=== PATIENT | male | born 1965 | race Caucasian/White ===

== ENCOUNTER 2019-07-10 13:23 | Outpatient (CLI) | payer BC, SELFPAY ==
--- NOTE | ~2019-07-10 | XR_ITS ---
EXAMINATION: XR lg joint inject/asp w image DATE: 07/10/2019 14:10 INDICATION: Right hip arthritis. TECHNIQUE: A time-out was performed to verify the patient's name, date of , and procedure to b e performed. The procedure including the risks, benefits, and alternatives was discussed with the pat ient. Risks discussed included bleeding and infection. The patient understood the risks and agreed to proceed. The skin overlying the right hip joint was prepped and draped in usual sterile fashion. A nesthetic was administered with 1% lidocaine subcutaneously. A 22 G needle was advanced under fluoro scopic guidance into the joint. Injection of 2 mL of Omnipaque 240 confirmed intra-articular positio n of the needle. Subsequently, injectate consisting of 2 mL 0.5% bupivacaine and 1 mL 80 mg/mL Depo- Medrol was instilled. The needle was removed and the entry site was cleaned and dressed. There were no immediate complications. Fluoroscopy exposure time was 0.1 minutes. The total number of images wa s 2. FINDINGS: Real-time fluoroscopy demonstrates the needle in the right hip joint. Patient's pain prior to procedure:08/20. Patient's pain following the procedure: 06/22. IMPRESSION: 1. Right hip joint injection of local anesthetic and steroid with decrease in the patient's presentin g pain. Reviewed, dictated and finalized at location A. ING EDITOR IMPRESSION: 1. Right hip joint injection of local anesthetic and steroid with decrease in t he patient's presenting pain.
== END 2019-07-10 13:24 | disposition home or self-care (01) ==
PROVIDERS: PCP Internal Medicine; Visit Provider Orthopaedic Surgery
DX: M16.11 Unilateral primary osteoarthritis, right hip (principal)
CPT/HCPCS: 20610; 77002; J1040; Q9966

== ENCOUNTER 2020-06-09 07:29 | Outpatient (CLI) | payer BC, SELFPAY ==
--- NOTE | 2020-06-09 07:35 | ECHO_ITS ---
Patient Info Name: Wenceslao Woody Age: 55 years : 1965 Gender: Male Ht: 71 in Wt: 306 lbs BSA: 2.70 m2 HR: 71 bpm BP: 159 / 93 mmHg Technical Quality: Good Exam Date: 06/09/2020 8:28 AM Exam Location: [facility] Pulmonary Patient Status: Outpatient Admit Date: 06/09/2020 Staff Ordering Physician: Cortes Herrera APRN Career Placement Specialist: Ursula Fitzpatrick RDCS Attending Provider: Cortes Herrera APRN Referring Physician: Javier MICHAEL; Exam Type: CA echo doppler color flow Study Info Indications R53.83 - Other fatigue Strain analysis performed. Complete two-dimensional, color flow and Doppler transthoracic echocardiogram is performed. Summary 1. Complete two-dimensional, color flow and Doppler transthoracic echocardiogram is performed. 2. Left ventricular chamber dimension is normal. 3. Left ventricular systolic function is normal, estimated at 60-65%. 4. There is mildly increased left ventricular wall thickness. 5. The left ventricular diastolic function is abnormal. 6. E/e' 11 is mildly elevated. 7. Global longitudinal strain is normal at -21.5%. 8. Left atrial chamber dimension is mildly enlarged. 9. There is trace mitral valve regurgitation. Left Ventricle E/e' 11 is mildly elevated. Global longitudinal strain is normal at -21.5%. Left ventricular chamber dimension is normal. Left ventricular systolic function is normal, estimated at 60-65%. There is mildly increased left ventricular wall thickness. The left ventricular diastolic function is abnormal. Right Ventricle Right ventricular chamber dimension is normal. Right ventricular systolic function is normal. Left Atria Left atrial chamber dimension is mildly enlarged. Right Atria Right atrial chamber dimension is normal. Aortic Valve The aortic valve is trileaflet. There is no aortic valve stenosis. There is no aortic valve regurgitation. Pulmonic Valve There is no pulmonic regurgitation. Mitral Valve There is no mitral valve stenosis. There is trace mitral valve regurgitation. Tricuspid Valve There is no tricuspid valve regurgitation. Pericardium/Pleural There is no pericardial effusion. Inferior Vena Cava Normal inferior vena cava with >50% collapse upon inspiration consistent with normal right atrial pressure, 5 mmHg. Aorta The aortic root size at the sinus of Valsalva is normal. Left Ventricular Outflow Tract Name Value Normal LVOT 2D LVOT Diameter 2.2 cm LVOT Doppler LVOT Peak Gradient 4 mmHg LVOT Mean Gradient 2 mmHg LVOT VTI 23 cm LVOT VTI/AV VTI Ratio 0.8 LVOT Stroke Volume 86 ml LVOT CO 6.6 l/min LVOT CI 2.4 l/min/m2 Mitral Valve Name Value Normal MV Doppler
--- NOTE | 2020-06-09 07:35 | EST_ITS ---
Patient Info Name: Wenceslao Woody Age: 55 years : 1965 Gender: Male Ht: 71 in Wt: 306 lbs BSA: 2.70 m2 Exam Date: 06/09/2020 9:27 AM Exam Location: [facility] Stress Patient Status: Outpatient Admit Date: 06/09/2020 Staff Ordering Physician: Cortes Herrera APRN Attending Provider: Cortes Herrera APRN Exercise Technologist: Liliana Izaguirre RDCS Exercise Physician: Carroll Cox DO Exam Type: CA stress test treadmill Study Info Indications R07.9 - Chest pain, unspecified A treadmill exercise stress test was performed. Summary 1. 1. Negative Moses exercise stress test for ischemic ST changes by ECG criteria. 2. 2. Reduced functional capacity, achieving 7 METs of workload. 3. 3. Baseline hypertension. 4. 4. Appropriate HR response to exercise. 5. 5. Appropriate HR recovery at 1 minute post exercise. 6. 6. No imaging with stress testing. 7. 7. Patient informed of the above results. Protocol: Moses Stress ECG Details Stage: REST Duration (min): 6 min : 35 sec Speed (mph): 0.0 Grade (%): 0 HR (bpm): 69 SBP (mmHg): 145 DBP (mmHg): 80 METS: --- Stage: REST Duration (min): 9 min : 49 sec Speed (mph): 0.0 Grade (%): 0 HR (bpm): 68 SBP (mmHg): 145 DBP (mmHg): 80 METS: --- Stage: STAGE 1 Duration (min): 1 min : 0 sec Speed (mph): 1.7 Grade (%): 10 HR (bpm): 93 SBP (mmHg): 145 DBP (mmHg): 80 METS: --- Stage: STAGE 1 Duration (min): 2 min : 0 sec Speed (mph): 1.7 Grade (%): 10 HR (bpm): 107 SBP (mmHg): 145 DBP (mmHg): 80 METS: --- Stage: STAGE 1 Duration (min): 3 min : 0 sec Speed (mph): 1.7 Grade (%): 10 HR (bpm): 114 SBP (mmHg): 184 DBP (mmHg): 78 METS: --- Stage: STAGE 2 Duration (min): 1 min : 0 sec Speed (mph): 2.5 Grade (%): 12 HR (bpm): 124 SBP (mmHg): 184 DBP (mmHg): 78 METS: --- Stage: STAGE 2 Duration (min): 2 min : 0 sec Speed (mph): 2.5 Grade (%): 12 HR (bpm): 130 SBP (mmHg): 209 DBP (mmHg): 78 METS: --- Stage: STAGE 2 Duration (min): 3 min : 0 sec Speed (mph): 2.5 Grade (%): 12 HR (bpm): 136 SBP (mmHg): 209 DBP (mmHg): 78 METS: --- Stage: STAGE 3 Duration (min): 0 min : 15 sec Speed (mph): 3.4 Grade (%): 14 HR (bpm): 140 SBP (mmHg): 209 DBP (mmHg): 78 METS: --- Stage: RECOVERY Duration (min): 0 min : 44 sec Speed (mph): 0.0 Grade (%): 0 HR (bpm): 132 SBP (mmHg): 193 DBP (mmHg): 74 METS: --- Stage: RECOVERY Duration (min): 1 min : 44 sec Speed (mph): 0.0 Grade (%): 0 HR (bpm): 114 SBP (mmHg): 193 DBP (mmHg): 74 METS: --- Stage: RECOVERY Duration (min): 2 min : 44 sec Speed (mph): 0.0 Grade (%): 0 HR (bpm): 104 SBP (mmHg): 193 DBP (mmHg): 74 METS: --- Stage: RECOVERY
== END 2020-06-09 07:30 | disposition home or self-care (01) ==
PROVIDERS: PCP Internal Medicine; Visit Provider Nurse Practitioner
DX: R06.02 Shortness of breath (principal); R53.83 Other fatigue; R07.89 Other chest pain; I51.9 Heart disease, unspecified
CPT/HCPCS: 93017; 93306

== ENCOUNTER 2020-10-04 08:32 | Outpatient (CLI) | payer BC, SELFPAY ==
--- NOTE | ~2020-10-04 | US_ITS ---
US abdomen limited INDICATION: Increased liver function tests PROCEDURE: Realtime right upper abdominal ultrasound. COMPARISON: No prior studies for comparison. FINDINGS: The pancreas is normal without focal mass or pancreatic ductal dilation. Liver echotexture is increased, consistent with fatty infiltration. There is normal directional flow in the portal ve in. The gallbladder is normal without stones, gallbladder wall thickening or pericholecystic fluid. Comm on bile duct measures 3.5 mm. No sonographic Garcia's sign. Right renal echotexture is unremarkable. IMPRESSION: 1: Hepatic steatosis. Reviewed, dictated and finalized at location A. IMPRESSION: 1: Hepatic steatosis.
== END 2020-10-04 08:33 | disposition home or self-care (01) ==
PROVIDERS: PCP Internal Medicine; Visit Provider Internal Medicine
DX: R79.89 Other specified abnormal findings of blood chemistry (principal); K76.0 Fatty (change of) liver, not elsewhere classified
CPT/HCPCS: 76705

== ENCOUNTER 2021-08-18 06:51 | Outpatient (CLI) | payer BC, SELFPAY ==
--- NOTE | ~2021-08-18 | MR_ITS ---
EXAMINATION: MR shoulder LT wo con DATE: 08/18/2021 08:20 INDICATION: Left shoulder pain TECHNIQUE: Magnetic resonance imaging (MRI) of the left shoulder was performed without intravenous co ntrast. Sequences included axial PD-weighted FS FSE, coronal oblique PD-weighted FS FSE, coronal obli que T2-weighted FS FSE, sagittal PD-weighted FS FSE, and sagittal T1-weighted SE. COMPARISON: None. FINDINGS: Coracoacromial arch: The acromion undersurface is curved in morphology (type II). The coracoacromial ligament is normal. M oderate acromioclavicular osteoarthritis with small inferiorly directed osteophytes which abuts the u nderlying supraspinatus muscle and tendon upon which exerts minimal mass effect. Rotator cuff: Mild infraspinatus and moderate supraspinatus tendinopathy. There is a small intrasubstance tear sugar uring approximate 5 mm AP and extending proximally 1 m from the superior facet footplate which involv es approximately one third of the tendon thickness. The teres minor tendon is normal. Mild subscapula ris tendinopathy without discrete tear. Normal rotator cuff muscle bulk and signal. Biceps tendon, glenoid labrum and glenohumeral cartilage: Long head of the biceps tendon is normal. There is thickening of the coracohumeral and superior gleno humeral ligament components of the biceps jak sling without a discrete defect which could be due t o either partial tear or adhesive capsulitis, the latter which is a clinical diagnosis. SLAP tear of the 10:30-12:00 position of the posterior superior glenoid labrum. There is suggestion of mild glenoh umeral osteoarthritis with partial thickness cartilage loss and chondral surface irregularity along t he posterior superomedial aspect of the humeral head and mild partial-thickness cartilage loss along the anterosuperior glenoid. Assessment of the cartilages is however limited by some motion blurring a nd increased quantum mottle motion on the axial and coronal images. Fluid: Small amount of fluid in the long head biceps tendon sheath which is disproportionate to the physiolo gic amount fluid in the glenohumeral joint consistent with mild bicipital tenosynovitis. No loose ost eochondral bodies. Mild increased fluid signal in the subacromial/subdeltoid bursa consistent with mi ld bursitis. Bones: Normal marrow signal with no edema, fracture or pathologic marrow replacing process. IMPRESSION: 1. Moderate supraspinatus tendinopathy with small mild intrasubstance tear at the distal tendon. Mild infraspinatus and subscapularis tendinopathy without tear. 2. Mild glenohumeral osteoarthritis with SLAP tear at the posterior superior glenoid labrum. 3. Moderate acromioclavicular osteoarthritis. 4. Mild subacromial/subdeltoid bursitis. 5. Thickening of the biceps jak sling which could be due to either partial tear or adhesive capsul itis, the latter a clinical diagnosis. 6. Mild bicipital tenosynovitis. Reviewed, dictated and finalized at location A. CTOR OF THERAPY SERVICES IMPRESSION: 1. Moderate supraspinatus tendinopathy with small mild intrasubstance tear at t he distal tendon. Mild infraspinatus and subscapularis tendinopathy without tea r. 2. Mild glenohumeral osteoarthritis with SLAP tear at the posterior superior gl enoid labrum. 3. Moderate acromioclavicular osteoarthritis. 4. Mild subacromial/subdeltoid bursitis. 5. Thickening of the biceps jak sling which could be due to either partial t ear or adhesive capsulitis, the latter a clinical diagnosis. 6. Mild bicipital tenosynovitis.
== END 2021-08-18 06:52 | disposition home or self-care (01) ==
PROVIDERS: PCP Internal Medicine; Visit Provider Orthopaedic Surgery
DX: M19.012 Primary osteoarthritis, left shoulder (principal); M75.102 Unspecified rotator cuff tear or rupture of left shoulder, not specified as traumatic; S43.432A Superior glenoid labrum lesion of left shoulder, initial encounter; M75.52 Bursitis of left shoulder; M65.812 Other synovitis and tenosynovitis, left shoulder
CPT/HCPCS: 73221

== ENCOUNTER 2021-08-20 13:13 | Outpatient (CLI) | payer BC, SELFPAY ==
--- NOTE | ~2021-08-20 | XR_ITS ---
EXAMINATION: XR chest 2V EXAM DATE: 08/20/2021 13:30 INDICATION: R07.9 - Chest pain, unspecified, left side pain. TECHNIQUE: Frontal and lateral projections of the chest obtained and reviewed. There is no prior jeovanny dy for comparison. FINDINGS: Mild cardiomegaly. No confluent consolidation, pneumothorax or pleural effusion suspected. There are no osseous abnormalities identified. IMPRESSION: Mild cardiomegaly. Reviewed, dictated and finalized at location A. NG QUALITY ANALYST IMPRESSION: Mild cardiomegaly.
== END 2021-08-20 13:14 | disposition home or self-care (01) ==
PROVIDERS: PCP Internal Medicine; Visit Provider Nurse Practitioner
DX: R07.9 Chest pain, unspecified (principal); I51.7 Cardiomegaly
CPT/HCPCS: 71046

== ENCOUNTER 2022-01-10 01:32 | Emergency (ER) | payer BC, SELFPAY ==
[2022-01-10] VITALS (21 sets, daily range): BP systolic 125–148; BP diastolic 66–80; PULSE 54–70; RESP 15–22; TEMP 36.4; O2SAT 96–100
--- NOTE | ~2022-01-10 | CT_ITS ---
EXAMINATION: CT abdomen pelvis w con DATE: 01/10/2022 02:36 INDICATION: epigastric pain TECHNIQUE: Computed tomography (CT) of the abdomen and pelvis was performed with 100 mL Omnipaque-300 intravenous contrast. Automated exposure control and iterative reconstruction technique were employe d. The dose-length product was 1553.97 mGy-cm. COMPARISON: None. FINDINGS: Lower thorax: Cardiomegaly. Aortic calcification. Liver: Enlarged. Diffusely low density as can be seen with steatosis. Biliary/Gallbladder: Gallbladder is partially collapsed. No bile duct dilation. Pancreas: No mass or duct dilation. Spleen: Normal. Adrenals:No mass. Kidneys: No mass, stone, or hydronephrosis. GI tract: No small or large bowel dilation. Normal appendix. Mesentery/Peritoneum: No ascites, mass, or free air. Retroperitoneum: No mass. Pelvis: Pelvic organs are within normal limits. Soft Tissues: Soft tissues and body wall unremarkable. Bones: No acute osseous finding. IMPRESSION: No acute abdominopelvic process. Reviewed, dictated and finalized at location K.
--- NOTE | 2022-01-10 01:49 | ECG_ITS ---
Measurements Intervals [place] Rate: 63 P: 36 MS: 162 QRS: -30 QRSD: 185 T: 25 QT: 472 QTc: 485 Interpretive Statements SINUS RHYTHM RIGHT BUNDLE BRANCH BLOCK INFERIOR INFARCT, AGE INDETERMINATE ABNORMAL ECG Electronically Signed On 01-10-2022 8:08:00 CDT by Carroll Cox D.O.
--- NOTE | 2022-01-10 01:55 | ED.ABDPAIN ---
HPI - Abdominal Pain General Chief Complaint: Abdominal Pain Stated Complaint: abd/back pain Time Seen by Provider: 01/10/22 01:48 History of Present Illness HPI narrative: Patient is a 56-year-old male complaining of epigastric pain, 8 out of 10, sharp, nonradiating, started tonight. Patient denies any chest pain, shortness of breath, nausea, vomiting, diarrhea, urinary symptoms, fever or chills. Related Data Home Medications Medication Instructions Recorded Confirmed aspirin 81 mg tablet,delayed 81 mg PO DAILY 05/16/19 09/30/21 release (Aspir-) fluticasone propionate 50 1 spray intranasal DAILY PRN 05/16/19 09/30/21 mcg/actuation nasal Congestion spray,suspension (Flonase Allergy Relief) omega-3 fatty acids 1,000 mg 1,000 mg PO DAILY 09/25/20 09/30/21 capsule (Fish Oil Concentrate) topiramate 100 mg capsule,extended 100 mg PO DAILY 08/20/21 09/30/21 release 24 hr (Trokendi XR) Allergies Allergy/AdvReac Type Severity Reaction Status Date / Time lisinopril Allergy Severe angioedema Verified 01/10/22 01:57 Review of Systems Review of Systems: All systems reviewed & are unremarkable except as noted in HPI and below Constitutional: Constitutional: Denies body ache(s), Denies chills, Denies excessive sweating, Denies fatigue, Denies fever(s), Denies headache(s), Denies lethargy, Denies malaise, Denies weakness and Denies weight loss Eyes: Eyes: Denies blurry vision, Denies change in vision and Denies loss of vision ENT: Denies dizziness, Denies ear discharge, Denies headache(s), Denies lip swelling, Denies epistaxis, Denies nasal congestion, Denies neck pain, Denies throat swelling and Denies tongue swelling Cardiovascular: Cardiovascular: Denies chest pain, Denies chest pain at rest, Denies chest pain with activity, Denies diaphoresis, Denies rapid heart rate, Denies edema, Denies irregular heart rhythm, Denies lightheadedness, Denies palpitations, Denies dyspnea and Denies dyspnea on exertion Respiratory: Respiratory: Denies chest congestion, Denies cough, Denies hemoptysis, Denies dyspnea and Denies dyspnea on exertion Gastrointestinal: Gastrointestinal: Denies melena, Denies hematochezia, Denies diarrhea, Denies nausea, Denies vomiting and Denies hematemesis Musculoskeletal: Musculoskeletal: Denies abnormal gait, Denies deformity, Denies joint swelling, Denies limited range of motion, Denies neck pain and Denies numbness Neurologic: Denies Abnormal speech present, Denies abnormal gait, Denies confusion, Denies dizziness, Denies headache(s), Denies focal weakness, Denies loss of vision, Denies numbness, Denies Other visual disturbances, Denies Sensory deficit (Neuro) and Denies weakness Psychiatric: Psychiatric: Denies confusion, Denies depression, Denies auditory hallucinations, Denies homicidal ideation and Denies suicidal ideation Endocrine: Endocrine: Denies cold intolerance, Denies excessive sweating, Denies fatigue, Denies heat intolerance and Denies palpitations Hematologic/Lymphatic: Hematologic/Lymphatic: Denies easy bleeding and Denies easy bruising Allergic/Immunologic: Allergic/Immunologic: Denies lip swelling, Denies throat swelling and Denies tongue swelling PMFSH Past Medical History Medical History Adhesive capsulitis of left shoulder Arthritis of right hip Arthritis of shoulder region, left, degenerative Biceps tendonitis on right Chronic GERD Complete tear of left rotator cuff Essential (primary) hypertension Family history of colon cancer in father Hearing loss Hx of migraines Labral tear of long head of left biceps tendon Labral tear of right hip joint Left shoulder pain Mixed hyperlipidemia Morbid obesity with BMI of 40.0-44.9, adult PAM (obstructive sleep apnea) WEARS CPAP Tendonitis of upper biceps tendon of left shoulder Type 2 diabetes mellitus without complication Social History Social History (Reviewed 01/10/22 @
[2022-01-10 02:04] LABS: Basophils Absolute Auto 0.1 K/mm3 (0.0-0.1); Basophils Percent Auto 0.6 % (0.2-1.2); Eosinophils Absolute Auto 0.4 K/mm3 (0-0.3); Eosinophils Percent Auto 5.2 % (0-4.4); Hemoglobin 13.9 g/dL (14.0-18.0); Immature Granulocyte Absolute 0.02 K/mm3 (0.00-0.031); Immature Granulocyte Percent A 0.2 % (0-0.5); Lymphocytes Absolute Auto 1.66 K/mm3 (0.9-3.2); Lymphocytes Percent Auto 20.6 % (18.3-44.2); Mean Corpuscular HGB Conc 32.3 g/dl (32-36); Mean Corpuscular Hemoglobin 30.1 pg (26-34); Mean Corpuscular Volume 93.1 fl (80-100); Monocytes Absolute Auto 0.8 K/mm3 (0.1-0.6); Monocytes Percent Auto 9.4 % (2.6-8.5); Neutrophils Absolute Auto 5.2 K/mm3 (1.3-6.7); Platelet Count Result 284 k/mm3 (150-375); Red Blood Count 4.62 M/mm3 (4.6-6.20); Red Cell Distribution Width 13.5 % (11.5-14.5); White Blood Count 8.1 K/mm3 (4.5-10.0)
[2022-01-10] MEDS: LACTATED RINGERS 1,000 ML 999 ML IV CONT (02:10)
[2022-01-10 02:13] LABS: Alanine Aminotransferase 51 U/L (6-50); Albumin Level 4.3 g/dL (3.5-5.1); Alkaline Phosphatase 104 U/L (38-126); Anion Gap 11 mmol/L (8-16); Aspartate Amino Transferase 34 U/L (17-59); Bilirubin,Total 0.3 mg/dL (0.2-1.3); Blood Urea Nitrogen 25 mg/dL (9-20); Calcium 9.1 mg/dL (8.4-10.2); Carbon Dioxide 19 mmol/L (22-30); Chloride 109 mmol/L (98-107); Estimated CRCL calculation 69 ml/min; Estimated Glomerular Filt Rate 48; Glucose 126 mg/dL (65-110); Lipase 75 U/L (23-300); Potassium 4.2 mmol/L (3.4-5.0); Sodium 139 mmol/L (137-145)
== END 2022-01-10 04:44 | disposition home or self-care (01) ==
PROVIDERS: Emergency Provider Emergency Medicine; PCP Internal Medicine
DX: R10.11 Right upper quadrant pain (principal); I10 Essential (primary) hypertension; E11.9 Type 2 diabetes mellitus without complications; E78.2 Mixed hyperlipidemia; K21.9 Gastro-esophageal reflux disease without esophagitis; M19.012 Primary osteoarthritis, left shoulder; M16.11 Unilateral primary osteoarthritis, right hip; G47.33 Obstructive sleep apnea (adult) (pediatric); E66.01 Morbid (severe) obesity due to excess calories; Z68.41 Body mass index [BMI] 40.0-44.9, adult; Z79.82 Long term (current) use of aspirin; Z79.84 Long term (current) use of oral hypoglycemic drugs; I45.10 Unspecified right bundle-branch block; R94.31 Abnormal electrocardiogram [ECG] [EKG]
CPT/HCPCS: 36415; 74177; 80053; 83690; 85025; 93005; 96360; 99284; J7120; Q9967

== ENCOUNTER 2024-08-07 00:23 | Day surgery (SDC) | payer BC, SELFPAY ==
[2024-07-27 10:04] VITALS: BMI 43.3
--- OUTSIDE RECORDS SUMMARY | 2024-08-07 00:25 | XMS_ITS | Clinical Summary ---
Author Organization [facility] Address [address] [facility] [address] [facility] [address] [place] [address] Care Team Providers Care Sales Representative Meats Name Role Phone Rohan Mcgee MD Primary Care Provider [phone] Source Comments [facility],non-owned Affiliates and Associated Physician Practices is amultiple site organization consisting of ambulatory clinics and hospital sitesin [place], [place], [place] and [place]. This disclosure is being madepursuant to the Care Everywhere program and may not contain all information available regarding this patient. Last updated 18.[facility] Allergies No known active allergies Medications * Be aware that medications may not be up to date on this document. Alwaysverify current medications with the patient. Medication Sig Dispensed Refills Start Date End Date Status metFORMIN ER 24hr (GLUCOPHAGE XR) 500MG tablet Take 500 mg by mouth daily with dinner Active allopurinol (ZYLOPRIM) 300 MG tablet Take 300 mg by mouth once daily Active lisinopril (PRINIVIL; ZESTRIL) 20 MG tablet Take 20 mg by mouth once daily Active aspirin (ASPIRIN) 81 MG tablet Take 81 mg by mouth once daily Active phentermine-topiramat e 24hr (QSYMIA) 3.75-23 MG capsule Take 1 capsule by mouth once daily Active Fluticasone Propionate (FLONASE NA) Active Fexofenadine HCl (GARRICK PO) Active CPAP Use as directed Active Social History Tobacco Use Types Packs/Day Years Used Date Smoking Tobacco: Never Smokeless Tobacco: Never Sex and Gender Information Value Date Recorded Sex Assigned at Not on file Gender Identity Not on file Sexual Orientation Not on file Last Filed Vital Signs Vital Sign Reading Time Taken Comments Blood Pressure 150/96 09/01/2017 11:19 AM CDT Pulse 76 09/01/2017 11:19 AM CDT Temperature 36.9 C (98.4 F) 09/01/2017 11:19 AM CDT Respiratory Rate 18 09/01/2017 11:19 AM CDT Oxygen Saturation 98% 09/01/2017 11:19 AM CDT Inhaled Oxygen Concentration - - Weight 143.3 kg (316 lb) 09/01/2017 11:19 AM CDT Height 180.3 cm (5' 11 ) 09/01/2017 11:19 AM CDT Body Mass Index 44.07 09/01/2017 11:19 AM CDT Plan of Treatment Health Maintenance Due Date Last Done Comments COLOGUARD (AGES 45-75) - COL ON CA SCREENING 1965 COLON MONITORING 1965 COLONOSCOPY - COLON CA SCREENING 1964 CT COLONOGRAPHY - COLON CA SCREENING 1965 Colorectal Cancer Screening 1965 FIT - COLON CA SCREENING 1965 FLEX SIG - COLON CA SCREENING 1965 LIPID TESTING 1965 HIV SCREENING 1979 HEPATITIS C SCREENING 03/15/1982 DTAP/TDAP/TD VACCINES (1 - Tdap) 1983 PNEUMOCOCCAL VACCINE 50+ (1 of 1 - PCV) 2014 ZOSTER VACCINE (1 of 2) 2014 SCREENING FOR DIABETES 09/01/2017 COVID-19 VACCINE ( - 2023-2 5 season) 2024 INFLUENZA VACCINE (#1) 2024 Respiratory Syncytial Virus (RSV) Vaccine Pt: or over 60 yrs (1 - Risk 60-74 years 1-dose series) 2024 DEPRESSION SCREENING 06/13/2024 HEPATITIS B VACCINE Aged Out No longe r eligible based on patient's age to complete this topic HIB VACCINE Aged Out No longer eligi ble based on patient's age to complete this topic HPV VACCINE Aged Out No longer eligi ble based on patient's age to complete this topic MENINGOCOCCAL (Group B) VACCINE Aged Out No longer eligible based on patient's age to complete this topic MENINGOCOCCAL VACCINE Aged Out No coll[place] hannah eligible based on patient's age to complete this topic PNEUMOCOCCAL VACCINE Aged Out No long er eligible based on patient's age to complete this topic Care Teams Sales Representative Meats Relationship Specialty Start Date End Date Rohan Mcgee MD [address] [facility] [address] [place] [id number] PCP - General Internal Medicine 09/01/17
--- OUTSIDE RECORDS SUMMARY | 2024-08-07 00:25 | XMS_ITS | Patient Health Summary ---
Author Organization [facility] Address [address] [place] [address] Care Team Providers Care Concrete Stone Finisher Name Role Phone Rohan Mcgee MD Primary Care Provider [phone] Note from [facility],non-owned Affiliates and Associated Physician Practices is amultiple site organization consisting of ambulatory clinics and hospital sitesin [place], [place], [place] and [place]. This disclosure is being madepursuant to the Care Everywhere program and may not contain all information available regarding this patient. Last updated 18.[facility] Allergies No known active allergies Medications * Be aware that medications may not be up to date on this document. Alwaysverify current medications with the patient. * metFORMIN ER 24hr (GLUCOPHAGE XR) 500MG tablet Take 500 mg by mouth daily with dinner * allopurinol (ZYLOPRIM) 300 MG tablet Take 300 mg by mouth once daily * lisinopril (PRINIVIL; ZESTRIL) 20 MG tablet Take 20 mg by mouth once daily * aspirin (ASPIRIN) 81 MG tablet Take 81 mg by mouth once daily * phentermine-topiramate 24hr (QSYMIA) 3.75-23 MG capsule Take 1 capsule by mouth once daily * Fluticasone Propionate (FLONASE NA) * Fexofenadine HCl (GARRICK PO) * CPAP Use as directed Social History Tobacco Use Types Packs/Day Years [...] Mass Index 44.07 09/01/2017 11:19 AM CDT Care Teams Concrete Stone Finisher Relationship Specialty Start Date End Date Rohan Mcgee MD [address] [phone] PCP - General Internal Medicine 09/01/17
--- OUTSIDE RECORDS SUMMARY | 2024-08-07 00:25 | XMS_ITS | Referral Summary ---
Author Organization [facility] Address [address] [place] [address] Care Team Providers Care Business Continuity Specialist Name Role Phone Rohan Mcgee MD Primary Care Provider [phone] Source Comments [facility],non-owned Affiliates and Associated Physician Practices is amultiple site organization consisting of ambulatory clinics and hospital sitesin [place], [place], [place] and [place]. This disclosure is being madepursuant to the Care Everywhere program and may not contain all information available regarding this patient. Last updated 18.[facility] Allergies No known active allergies Medications * [...] 09/01/2017 11:19 AM CDT Plan of Treatment Not on file Care Teams Business Continuity Specialist Relationship Specialty Start Date End Date Rohan Mcgee MD [address] [phone] PCP - General Internal Medicine 09/01/17
[2024-08-07 09:18] VITALS: BP 132/71; PULSE 67; RESP 18; TEMP 36.2; O2SAT 99; BMI 38.4
[2024-08-07] MEDS: LACTATED RINGERS 1,000 ML 150 ML IV CONT (09:26)
[2024-08-07 09:33] LABS: Glucose Point of Care 100 mg/dl (65-105)
--- NOTE | 2024-08-07 09:41 | WPDANESEPPF ---
Anes - Initial Pre Proc Eval Procedure: Operation Date: 08/07/24 10:30 Proposed Procedures p Screening Colonoscopy - Hugh Guthrie MD Date/Time: 08/07/24 09:41 Surgeon: Hugh Guthrie MD Pre Op Diagnosis: Screening Patient Data Age: 59 Gender: M Height: 1.8 m Weight: 125 kg Last Vital Signs Temp 36.2 C L 08/07/24 09:18 Pulse 67 08/07/24 09:18 Resp 18 08/07/24 09:18 BP 132/71 08/07/24 09:18 Pulse Ox 99 08/07/24 09:18 O2 Del Method Room Air 08/07/24 09:18 Allergies Allergy/AdvReac Type Severity Reaction Status Date / Time lisinopril Allergy Severe angioedema Verified 08/07/24 09:17 Home Medications ?Medication ?Instructions ?Recorded ?Confirmed ?Type aspirin 81 mg tablet,delayed 81 mg PO DAILY 05/16/19 08/07/24 History release (Aspir-) fluticasone propionate 50 1 spray intranasal DAILY PRN 05/16/19 07/27/24 History mcg/actuation nasal Congestion spray,suspension (Flonase Allergy Relief) omega-3 fatty acids 1,000 mg 1,000 mg PO DAILY 09/25/20 08/07/24 History capsule (Fish Oil Concentrate) topiramate 100 mg capsule,extended 100 mg PO DAILY 08/20/21 08/07/24 History release 24 hr (Trokendi XR) valsartan 160 mg tablet (Diovan) 160 mg PO BID #180 tabs 01/24/24 08/07/24 Rx allopurinol 300 mg tablet 300 mg PO DAILY #90 tabs 02/14/24 08/07/24 Rx amlodipine 10 mg tablet 10 mg PO DAILY #90 tabs 03/12/24 08/07/24 Rx fenofibrate nanocrystallized 145 145 mg PO DAILY #90 tabs 03/12/24 08/07/24 Rx mg tablet lovastatin 40 mg tablet 40 mg PO DAILY #90 tabs 03/12/24 08/07/24 Rx metformin 500 mg tablet See Rx Instructions .Route 03/12/24 08/07/24 Rx .COMPLEX #180 tabs tadalafil 20 mg tablet (Cialis) 20 mg PO DAILY PRN sexual activity 03/20/24 07/27/24 Rx #20 tabs tirzepatide 5 mg/0.5 mL 5 mg (0.5 mL) subcut WEEKLY #2 mL 03/20/24 07/27/24 Rx subcutaneous pen injector (Mounjaro) omeprazole 20 mg capsule,delayed 20 mg PO BID #180 caps 03/28/24 08/07/24 Rx release tirzepatide 7.5 mg/0.5 mL 7.5 mg (0.5 mL) subcut WEEKLY #2 mL 05/28/24 07/27/24 Rx subcutaneous pen injector (Mounjaro) Laboratory Tests 08/07/24 09:28 POC Capillary Glucose 100 mg/dl (65-105) Patient hx anesthesia problems: none Family hx anesthesia problems: none Results Review: All pre-operative results and documents have been reviewed as part of the pre-operative evaluation. [facility] Past Medical History Medical History Adhesive capsulitis of left shoulder Arthritis of right hip Arthritis of shoulder region, left, degenerative Biceps tendonitis on right Chronic GERD Complete tear of left rotator cuff Essential (primary) hypertension Family history of colon cancer in father Hearing loss Hx of migraines Labral tear of long head of left biceps tendon Labral tear of right hip joint Left shoulder pain Mixed hyperlipidemia Morbid obesity with BMI of 40.0-44.9, adult PAM (obstructive sleep apnea) WEARS CPAP Tendonitis of upper biceps tendon of left shoulder Type 2 diabetes mellitus without complication Social History Social History Smoking status: Smoker, status unknown Alcohol intake: former Substance use: never Lack of Transportation: No Lack of Food: Never True Current Housing: I Have Housing Concerned About Future Housing: No Difficulty Paying Gas/Electric Bills: No Difficulty Paying for Meds: No Currently Unemployed: No Education: High School Diploma/GED Difficulty w/ Childcare or Family Care: No Living arrangements: with family Additional living arrangements comments: Spiritual care concerns: No Anes - Eval Final PreProcedure Day of Procedure 08/07/24 09:41 Patient weight: obese Heart: regular rate and rhythm Lungs: clear to auscultation Airway: Mallampati scale class II Neurological: alert and oriented Last oral intake: >/= 8 hours ASA classification: III Emergent: no Anesthetic plan: proceed Anesthesia type and monitoring: general GIVS and standard monitoring Results Review: All pre-operative results and documents have been reviewed as part of the pre-operative evaluation. Informed Consent: The patient's anesthetic plan and its attendant risks and benefits were discussed with the patient/family/POA. Questions were solicited and answers provided to the satisfaction of the patient/family/POA.
--- NOTE | 2024-08-07 09:49 | PM.HPGS ---
History of Present Illness History of Present Illness Consent: Risks, benefits, and alternatives have been discussed and questions answered. Patient agrees to proceed with procedure. Chief complaint: Screening Narrative: Lawrence Woody is a 59 year old male here for colonoscopy, last one 2019, father had colon cancer Review of Systems Review of Systems: All systems reviewed & are unremarkable except as noted in HPI and below PMFSH Past Medical History Medical History Adhesive capsulitis of left shoulder Arthritis of right hip Arthritis of shoulder region, left, degenerative Biceps tendonitis on right Chronic GERD Complete tear of left rotator cuff Essential (primary) hypertension Family history of colon cancer in father Hearing loss Hx of migraines Labral tear of long head of left biceps tendon Labral tear of right hip joint Left shoulder pain Mixed hyperlipidemia Morbid obesity with BMI of 40.0-44.9, adult PAM (obstructive sleep apnea) WEARS CPAP Tendonitis of upper biceps tendon of left shoulder Type 2 diabetes mellitus without complication Social History Social History Smoking status: Smoker, status unknown Alcohol intake: former Substance use: never Lack of Transportation: No Lack of Food: Never True Current Housing: I Have Housing Concerned About Future Housing: No Difficulty Paying Gas/Electric Bills: No Difficulty Paying for Meds: No Currently Unemployed: No Education: High School Diploma/GED Difficulty w/ Childcare or Family Care: No Living arrangements: with family Additional living arrangements comments: Spiritual care concerns: No Meds Home Medications and Allergies Home Medications ?Medication ?Instructions ?Recorded ?Confirmed ?Type aspirin 81 mg tablet,delayed 81 mg PO DAILY 05/16/19 08/07/24 History release (Aspir-) fluticasone propionate 50 1 spray intranasal DAILY PRN 05/16/19 07/27/24 History mcg/actuation nasal Congestion spray,suspension (Flonase Allergy Relief) omega-3 fatty acids 1,000 mg 1,000 mg PO DAILY 09/25/20 08/07/24 History capsule (Fish Oil Concentrate) topiramate 100 mg capsule,extended 100 mg PO DAILY 08/20/21 08/07/24 History release 24 hr (Trokendi XR) valsartan 160 mg tablet (Diovan) 160 mg PO BID #180 tabs 01/24/24 08/07/24 Rx allopurinol 300 mg tablet 300 mg PO DAILY #90 tabs 02/14/24 08/07/24 Rx amlodipine 10 mg tablet 10 mg PO DAILY #90 tabs 03/12/24 08/07/24 Rx fenofibrate nanocrystallized 145 145 mg PO DAILY #90 tabs 03/12/24 08/07/24 Rx mg tablet lovastatin 40 mg tablet 40 mg PO DAILY #90 tabs 03/12/24 08/07/24 Rx metformin 500 mg tablet See Rx Instructions .Route 03/12/24 08/07/24 Rx .COMPLEX #180 tabs tadalafil 20 mg tablet (Cialis) 20 mg PO DAILY PRN sexual activity 03/20/24 07/27/24 Rx #20 tabs tirzepatide 5 mg/0.5 mL 5 mg (0.5 mL) subcut WEEKLY #2 mL 03/20/24 07/27/24 Rx subcutaneous pen injector (Mounjaro) omeprazole 20 mg capsule,delayed 20 mg PO BID #180 caps 03/28/24 08/07/24 Rx release tirzepatide 7.5 mg/0.5 mL 7.5 mg (0.5 mL) subcut WEEKLY #2 mL 05/28/24 07/27/24 Rx subcutaneous pen injector (Mounjaro) Allergies Allergy/AdvReac Type Severity Reaction Status Date / Time lisinopril Allergy Severe angioedema Verified 08/07/24 09:17 Vital Signs Vital Signs - 24 hr 08/07/24 09:18 Temperature 97.1 F L Pulse Rate 67 Respiratory Rate 18 Blood Pressure 132/71 Pulse Oximetry 99 Oxygen Delivery Room Air Exam Const: General: comfortable and no acute distress HENMT: Face/Nose/Sinus: Normal nares present Eyes: General: appearance normal, both eyes and all related structures Neck: Neck: no JVD Resp: Auscultation: clear to auscultation bilaterally Cardio: Rate: regular rate Rhythm: regular rhythm GI: Inspection: non-distended GI Palp: Yes Soft to palpation Skin: General skin exam: normal color Neuro: General: gait normal Speech: normal speech Extrem: General: normal to inspection Psych: Mental Status: mental status grossly normal Assessment and Plan Assessment and plan (1) Family history of colon cancer in father: Code(s): Z80.0 - Family history of malignant neoplasm of digestive organs Status: Acute Assessment and Plan: colonoscopy
[2024-08-07 10:07] VITALS: BP 106/58; PULSE 63; RESP 20; O2SAT 100
[2024-08-07 10:17] VITALS: BP 120/71; PULSE 63; RESP 15; O2SAT 100
[2024-08-07 10:27] VITALS: BP 110/65; PULSE 54; RESP 18; O2SAT 98
== END 2024-08-07 10:39 | disposition home or self-care (01) ==
PROVIDERS: PCP Family Medicine; Visit Provider Internal Medicine Gastroenterology
PROC: 0DJD8ZZ Inspection of Lower Intestinal Tract, Via Natural or Artificial Opening Endoscopic (ICD-10-PCS; CPT 45378; principal; 2024-08-07 10:30)
DX: Z12.11 Encounter for screening for malignant neoplasm of colon (principal); K64.8 Other hemorrhoids; I10 Essential (primary) hypertension; E78.2 Mixed hyperlipidemia; E11.9 Type 2 diabetes mellitus without complications; K21.9 Gastro-esophageal reflux disease without esophagitis; M16.11 Unilateral primary osteoarthritis, right hip; M19.012 Primary osteoarthritis, left shoulder; G47.33 Obstructive sleep apnea (adult) (pediatric); E66.9 Obesity, unspecified; Z68.38 Body mass index [BMI] 38.0-38.9, adult; Z99.89 Dependence on other enabling machines and devices; Z79.82 Long term (current) use of aspirin; Z79.84 Long term (current) use of oral hypoglycemic drugs; Z79.85 Long-term (current) use of injectable non-insulin antidiabetic drugs; Z87.891 Personal history of nicotine dependence; Z80.0 Family history of malignant neoplasm of digestive organs
CPT/HCPCS: 45378; 82948; J2003; J2704; J7120